=== PATIENT | female | born 1955 | race Caucasian/White ===

== ENCOUNTER 2018-11-22 08:55 | Inpatient (IN) | payer MEDICAID, MEDICARE ==
[~2018-11-22] VITALS: Ht 170.2 cm; Wt 104.5 kg
[~2018-11-22 08:55] MED LIST: CLON2TAB PO; DILT180C66 PO; FLUO20CA39 PO; IPRA3AMP9 IH; NITR0.4T48 SL; ONDA4TAB9 SL; RIVA20TA PO; SOTA80TA PO
[2018-11-22] MEDS ORDERED: normal saline 1000ML IV soln IV ONE (09:10)
[2018-11-22] MEDS ORDERED: pantoprazole IV 80 MG in normal saline 100ml IV soln 100 ML IV ONE (09:10)
[2018-11-22] MEDS ORDERED: pantoprazole IV 40 MG in normal saline 100ml IV soln 100 ML IV ONE (09:17)
[2018-11-22 09:34] LABS: BASOPHILS # (AUTO) 0.1 X10'3 (0-0.2); EOSINOPHILS # (AUTO) 0.1 X10'3 (0-0.9); EOSINOPHILS % (AUTO) 0.8 % (0-6); HEMOGLOBIN 7.7 g/dl (12.0-16.0); MEAN CORPUSCULAR VOLUME 53.9 FL (78-98); MONOCYTES # (AUTO) 0.5 X10'3 (0-0.9)
[2018-11-22 09:36] LABS: BASOPHILS % (AUTO) 0.7 % (0-1); HEMATOCRIT 26.5 % (35.0-45.0); LYMPHOCYTES # (AUTO) 2.6 X10'3 (1.1-4.8); LYMPHOCYTES % (AUTO) 27.1 % (21-51); MEAN CORPUSCULAR HEMOGLOBIN 15.8 PG (27.0-31.0); MEAN CORPUSCULAR HGB CONC 29.3 g/dL (33.0-36.5); MEAN PLATELET VOLUME 8.4 FL (7.4-10.4); NEUTROPHILS # (AUTO) 6.4 X10'3 (1.8-7.7); NEUTROPHILS % (AUTO) 66.4 % (42-75); PLATELET COUNT 779 X10'3 (140-440); RED BLOOD COUNT 4.91 X10'6 (4.20-5.60); RED CELL DISTRIBUTION WIDTH 22.3 % (11.5-14.5); WHITE BLOOD COUNT 9.6 X10'3 (4.5-11.0)
[2018-11-22] MEDS ORDERED: morphine 4 MG/ML inj SYRINge IV PRN (09:45)
[2018-11-22] MEDS ORDERED: ipratropium/albuterol 3ml nebule NEB ONE (09:45)
[2018-11-22] MEDS ORDERED: ondansetron/PF 4mg/2ml inj IV ONE (09:45)
[2018-11-22 09:48] LABS: ALANINE AMINOTRANSFERASE 21 U/L (12-78); ALKALINE PHOSPHATASE 90 IU/L (46-116); ANION GAP 15 (8-16); ASPARTATE AMINO TRANSFERASE 10 U/L (10-37); BILIRUBIN,TOTAL 0.5 MG/DL (0.1-1.0); BLOOD UREA NITROGEN 18 MG/DL (7-18); BUN/CREATININE RATIO 10.2 (6.6-38.0); CALCIUM 9.2 MG/DL (8.5-10.1); CHLORIDE 103 MMOL/L (99-107); CREATININE 1.76 MG/DL (0.40-0.90); GLUCOSE 118 MG/DL (70-104); POTASSIUM 4.5 MMOL/L (3.5-5.1); SODIUM 139 MMOL/L (135-145); TOTAL CARBON DIOXIDE 21.3 MMOL/L (24-32); TOTAL PROTEIN 8.2 G/DL (6.4-8.2); eGFR 29 ML/MIN
[2018-11-22] MEDS ORDERED: magnesium hydroxide 30ml (MOM) UD suspension PO PRN (10:10)
[2018-11-22] MEDS ORDERED: acetaminophen 325mg tablet PO PRN (10:10)
[2018-11-22] MEDS ORDERED: mag hydrox/Alum hydrox/simeth 30ml oral suspension PO PRN (10:10)
[2018-11-22] MEDS ORDERED: ondansetron/PF 4mg/2ml inj IV PRN (10:10)
[2018-11-22] MEDS ORDERED: HYDROcodone/acetaminophen 5mg/325mg tablet PO PRN (10:10)
[2018-11-22] MEDS ORDERED: morphine 2 MG/ML inj. syringe IV PRN ×2 (10:10)
[2018-11-22] MEDS ORDERED: DILT-36 PO (10:17)
[2018-11-22 10:18] LABS: PLATELET ESTIMATE INCREASED
[2018-11-22 10:19] LABS: ANISOCYTOSIS 3+; HYPOCHROMASIA 2+; MICROCYTOSIS 3+; POLYCHROMASIA 1+
[2018-11-22 10:20] LABS: ELLIPTOCYTES 1+; TEAR DROP CELLS FEW
[2018-11-22] MEDS ORDERED: DILT90CA PO (10:26)
[2018-11-22] MEDS ORDERED: ATOR40TA71 PO (10:45)
[2018-11-22] MEDS ORDERED: nitroGLYCERIN 0.4mg SUBLingual tab SL PRN (10:55)
--- NOTE | 2018-11-22 10:55 | NUR ---
PT IS IN BED SUPINE, JUST RCVD BREATHING TREATMENT, TOLERATED WELL
--- NOTE | 2018-11-22 11:45 | NUR ---
CALLED DR. ROMERO'S OFFICE TO REQUEST PREVIOUS LABS, THEIR LAST LABS WERE FROM 2017.
[2018-11-22 12:10] LABS: % IRON SATURATION 3 % (11-46); IRON 16 UG/DL (49-151); TOTAL IRON BINDING CAPACITY 516 UG/DL (259-388)
[2018-11-22 12:45] LABS: FERRITIN 4 NG/ML (8-252)
[2018-11-22 14:56] LABS: OCCULT BLOOD STOOL NEGATIVE (Neg)
[2018-11-22] MEDS: pantoprazole 40mg Tablet.DR PO SCH ×2 (15:24→20:35)
[2018-11-22] MEDS: clonazePAM 1mg tablet PO PRN ×2 (15:34→23:35)
--- NOTE | 2018-11-22 15:38 | NUR ---
PT ASKED FOR NORCO AND MORPHINE TO BE TAKEN OFF HER EMAR. SHE HAS STRUGGLED IN THE PAST AND HAS BEEN CLEAN FOR YEARS.
[2018-11-22] MEDS ORDERED: LIDOcaine Viscous 15ml cup ONE (16:33)
[2018-11-22] MEDS ORDERED: MIDAZolam 5mg/5ml vial ONE (16:33)
[2018-11-22] MEDS ORDERED: OMEP-50 PO (17:12)
--- NOTE | 2018-11-22 18:10 | NUR ---
Patient in room [facility]. I have received report from Marisel EAST and had the opportunity to ask questions and assume patient care.
--- NOTE | 2018-11-22 18:11 | NUR ---
GAVE REPORT TO LILIBETH EAST
--- NOTE | 2018-11-22 18:15 | NUR ---
Patient in room [facility]. I have received report from Marisel EAST and had the opportunity to ask questions and assume patient care.
[2018-11-22 20:00] VITALS: BP 108/69
[2018-11-22] MEDS: acetaminophen 325mg tablet PO PRN (23:36)
[2018-11-23] VITALS (18 sets, daily range): BP systolic 99–149; BP diastolic 64–94
[2018-11-23 05:31] LABS: ALBUMIN 3.5 G/DL (3.4-5.0); ANION GAP 14 (8-16); BLOOD UREA NITROGEN 19 MG/DL (7-18); BUN/CREATININE RATIO 13.8 (6.6-38.0); CALCIUM 8.7 MG/DL (8.5-10.1); CHLORIDE 105 MMOL/L (99-107); CREATININE 1.38 MG/DL (0.40-0.90); GLUCOSE 97 MG/DL (70-104); SODIUM 141 MMOL/L (135-145); TOTAL CARBON DIOXIDE 22.2 MMOL/L (24-32); eGFR 39 ML/MIN
[2018-11-23 06:43] LABS: BASOPHILS # (AUTO) 0.1 X10'3 (0-0.2); BASOPHILS % (AUTO) 0.8 % (0-1); EOSINOPHILS # (AUTO) 0.1 X10'3 (0-0.9); LYMPHOCYTES # (AUTO) 2.8 X10'3 (1.1-4.8); MEAN PLATELET VOLUME 8.4 FL (7.4-10.4); WHITE BLOOD COUNT 7.4 X10'3 (4.5-11.0)
[2018-11-23 06:47] LABS: EOSINOPHILS % (AUTO) 1.6 % (0-6); HEMATOCRIT 23.8 % (35.0-45.0); LYMPHOCYTES % (AUTO) 38.4 % (21-51); MEAN CORPUSCULAR HEMOGLOBIN 15.9 PG (27.0-31.0); MEAN CORPUSCULAR VOLUME 54.6 FL (78-98); MONOCYTES # (AUTO) 0.5 X10'3 (0-0.9); MONOCYTES % (AUTO) 6.7 % (2-12); NEUTROPHILS # (AUTO) 3.9 X10'3 (1.8-7.7); NEUTROPHILS % (AUTO) 52.5 % (42-75); PLATELET COUNT 613 X10'3 (140-440); RED BLOOD COUNT 4.35 X10'6 (4.20-5.60); RED CELL DISTRIBUTION WIDTH 21.7 % (11.5-14.5)
--- NOTE | 2018-11-23 06:51 | NUR ---
Problems reprioritized. Patient report given, questions answered & plan of care reviewed with Jeanine EAST.
[2018-11-23 06:55] LABS: HEMOGLOBIN 6.9 g/dl (12.0-16.0)
[2018-11-23] MEDS ORDERED: MIDAZolam 5mg/5ml vial ONE (07:22)
[2018-11-23] MEDS: DILTIAZEM 90 MG PO SCH (08:00)
[2018-11-23] MEDS ORDERED: LIDOcaine Viscous 15ml cup ONE (08:11)
[2018-11-23 09:03] LABS: ANISOCYTOSIS 3+; HYPOCHROMASIA 1+; MICROCYTOSIS 3+; PLATELET ESTIMATE INCREASED
[2018-11-23 09:04] LABS: LARGE PLATELETS FEW; POIKILOCYTOSIS FEW; POLYCHROMASIA FEW; TARGET CELLS FEW
[2018-11-23] MEDS: FLUoxetine 20mg capsule PO SCH (09:44)
[2018-11-23] MEDS: pantoprazole 40mg Tablet.DR PO SCH ×2 (09:44→19:22)
[2018-11-23] MEDS: atorvastatin 20mg tablet PO SCH (09:44)
[2018-11-23] MEDS: clonazePAM 1mg tablet PO PRN ×2 (09:50→19:22)
--- NOTE | 2018-11-23 15:32 | NUR ---
MD Rolle aware that pt. was tachycardic earlier. HR has improved since blood transfusion started. ok with DC'ing tele monitor. Also ok to advance diet.
--- NOTE | 2018-11-23 18:05 | NUR ---
Patient in room [facility]. I have received report from Jeanine EAST and had the opportunity to ask questions and assume patient care.
[2018-11-23 18:22] LABS: HEMATOCRIT 27.1 % (35.0-45.0); HEMOGLOBIN 8.1 g/dl (12.0-16.0); MEAN CORPUSCULAR HEMOGLOBIN 17.4 PG (27.0-31.0); MEAN CORPUSCULAR HGB CONC 29.9 g/dL (33.0-36.5); MEAN CORPUSCULAR VOLUME 58.1 FL (78-98); MEAN PLATELET VOLUME 8.5 FL (7.4-10.4); PLATELET COUNT 555 X10'3 (140-440); RED BLOOD COUNT 4.66 X10'6 (4.20-5.60); RED CELL DISTRIBUTION WIDTH 25.1 % (11.5-14.5); WHITE BLOOD COUNT 7.8 X10'3 (4.5-11.0)
--- NOTE | 2018-11-23 19:03 | NUR ---
GAVE REPORT TO LILIBETH EAST.
[2018-11-24] VITALS: BP 112/77
[2018-11-24] MEDS: acetaminophen 325mg tablet PO PRN (04:38)
[2018-11-24 06:12] LABS: BASOPHILS # (AUTO) 0.1 X10'3 (0-0.2); BASOPHILS % (AUTO) 1.4 % (0-1); EOSINOPHILS # (AUTO) 0.1 X10'3 (0-0.9); EOSINOPHILS % (AUTO) 2.4 % (0-6); HEMATOCRIT 27.1 % (35.0-45.0); HEMOGLOBIN 8.2 g/dl (12.0-16.0); LYMPHOCYTES # (AUTO) 2.1 X10'3 (1.1-4.8); LYMPHOCYTES % (AUTO) 35.1 % (21-51); MEAN CORPUSCULAR HEMOGLOBIN 17.6 PG (27.0-31.0); MEAN CORPUSCULAR HGB CONC 30.2 g/dL (33.0-36.5); MEAN CORPUSCULAR VOLUME 58.3 FL (78-98); MEAN PLATELET VOLUME 8.4 FL (7.4-10.4); MONOCYTES # (AUTO) 0.4 X10'3 (0-0.9); MONOCYTES % (AUTO) 6.7 % (2-12); NEUTROPHILS # (AUTO) 3.3 X10'3 (1.8-7.7); NEUTROPHILS % (AUTO) 54.4 % (42-75); PLATELET COUNT 598 X10'3 (140-440); RED BLOOD COUNT 4.64 X10'6 (4.20-5.60); RED CELL DISTRIBUTION WIDTH 24.9 % (11.5-14.5)
--- NOTE | 2018-11-24 06:17 | NUR ---
Problems reprioritized. Patient report given, questions answered & plan of care reviewed with Saskia EAST.
[2018-11-24 06:24] LABS: ALBUMIN 3.5 G/DL (3.4-5.0); ANION GAP 13 (8-16); BLOOD UREA NITROGEN 12 MG/DL (7-18); BUN/CREATININE RATIO 9.7 (6.6-38.0); CALCIUM 8.5 MG/DL (8.5-10.1); CHLORIDE 106 MMOL/L (99-107); CREATININE 1.24 MG/DL (0.40-0.90); GLUCOSE 92 MG/DL (70-104); SODIUM 141 MMOL/L (135-145); TOTAL CARBON DIOXIDE 21.9 MMOL/L (24-32); eGFR 44 ML/MIN
[2018-11-24] MEDS ORDERED: PANT40TA4 PO (07:08)
[2018-11-24 07:10] VITALS: BP 146/88
[2018-11-24] MEDS: DILTIAZEM 90 MG PO SCH (08:00)
[2018-11-24] MEDS: pantoprazole 40mg Tablet.DR PO SCH (08:30)
[2018-11-24] MEDS: clonazePAM 1mg tablet PO PRN (08:30)
[2018-11-24] MEDS: FLUoxetine 20mg capsule PO SCH (08:30)
[2018-11-24] MEDS: atorvastatin 20mg tablet PO SCH (08:30)
--- NOTE | 2018-11-24 08:45 | NUR ---
Pt discharged. Meds to be called into [facility] when [facility] open at 10am. IV taken out, no tele, all belongings taken from room. Pt states she feels well and ready to go home. She is appropriate for discharge and will follow up with pcp and dr savage for f/u egd. she is aware to not take xerelto for 5 days.
[2018-11-24 09:08] LABS: ANISOCYTOSIS 3+; HYPOCHROMASIA 1+; MICROCYTOSIS 3+; PLATELET ESTIMATE INCREASED; POIKILOCYTOSIS FEW; POLYCHROMASIA 1+; TARGET CELLS FEW
== END 2018-11-24 09:10 | disposition home or self-care (01) | DRG 377 ==
LOC: ER 08:57 → SUR 3N 12:13
PROVIDERS: ADMIT Internal Medicine; ATTEND Hospitalist
PROC: 0DJ08ZZ Inspection of Upper Intestinal Tract, Via Natural or Artificial Opening Endoscopic (ICD-10-PCS; principal; 2018-11-23)
PROC: 30233N1 Transfusion of Nonautologous Red Blood Cells into Peripheral Vein, Percutaneous Approach (ICD-10-PCS; 2018-11-23)
DX: K25.4 Chronic or unspecified gastric ulcer with hemorrhage (principal); N17.0 Acute kidney failure with tubular necrosis; D62 Acute posthemorrhagic anemia; E78.5 Hyperlipidemia, unspecified; I10 Essential (primary) hypertension; I25.10 Atherosclerotic heart disease of native coronary artery without angina pectoris; I48.0 Paroxysmal atrial fibrillation; K44.9 Diaphragmatic hernia without obstruction or gangrene; K29.71 Gastritis, unspecified, with bleeding; K22.2 Esophageal obstruction; D50.9 Iron deficiency anemia, unspecified; K21.9 Gastro-esophageal reflux disease without esophagitis; F32.9 Major depressive disorder, single episode, unspecified; F41.9 Anxiety disorder, unspecified; Z79.01 Long term (current) use of anticoagulants; Z83.3 Family history of diabetes mellitus; Z86.73 Personal history of transient ischemic attack (TIA), and cerebral infarction without residual deficits; Z90.49 Acquired absence of other specified parts of digestive tract; Z90.710 Acquired absence of both cervix and uterus; Z79.899 Other long term (current) drug therapy; Z88.8 Allergy status to other drugs, medicaments and biological substances; Z82.3 Family history of stroke; Z84.89 Family history of other specified conditions
CPT/HCPCS: 36415; 43235; 71046; 80048; 80053; 82272; 82728; 82948; 83540; 83550; 83880; 84484; 85025; 85027; 85610; 86885; 86900; 86901; 86920; 87081; 93005; 94640; 94760; 96365; 99152; 99285; A4620; C9113; G0378; J2250; J7040; P9016

== ENCOUNTER 2019-01-10 09:21 | Emergency (ER) | payer MEDICARE ==
[~2019-01-10] VITALS: Ht 170.2 cm; Wt 90.0 kg
[~2019-01-10 09:21] MED LIST changes: +ATOR40TA71 PO; -DILT180C66 PO; +DILT90CA PO; +PANT40TA4 PO; -SOTA80TA PO
[2019-01-10 10:23] LABS: BASOPHILS # (AUTO) 0.1 X10'3 (0-0.2); BASOPHILS % (AUTO) 0.7 % (0-1); EOSINOPHILS % (AUTO) 0.4 % (0-6); HEMATOCRIT 31.2 % (35.0-45.0); HEMOGLOBIN 9.3 g/dl (12.0-16.0); LYMPHOCYTES # (AUTO) 2.4 X10'3 (1.1-4.8); LYMPHOCYTES % (AUTO) 24.4 % (21-51); MEAN CORPUSCULAR HEMOGLOBIN 17.4 PG (27.0-31.0); MEAN CORPUSCULAR HGB CONC 29.9 g/dL (33.0-36.5); MEAN PLATELET VOLUME 8.4 FL (7.4-10.4); MONOCYTES # (AUTO) 0.6 X10'3 (0-0.9); MONOCYTES % (AUTO) 5.9 % (2-12); NEUTROPHILS # (AUTO) 6.6 X10'3 (1.8-7.7); NEUTROPHILS % (AUTO) 68.6 % (42-75); PLATELET COUNT 585 X10'3 (140-440); RED BLOOD COUNT 5.38 X10'6 (4.20-5.60); WHITE BLOOD COUNT 9.7 X10'3 (4.5-11.0)
[2019-01-10 10:46] LABS: PARTIAL THROMBOPLASTIN TIME 24 SECONDS (22-32)
[2019-01-10 10:51] LABS: PLATELET ESTIMATE INCREASED
[2019-01-10 10:52] LABS: ANISOCYTOSIS 3+; HYPOCHROMASIA 3+; MICROCYTOSIS 3+; POIKILOCYTOSIS 1+; POLYCHROMASIA 1+
[2019-01-10 10:54] LABS: ALANINE AMINOTRANSFERASE 20 U/L (12-78); ALBUMIN 4.1 G/DL (3.4-5.0); ALBUMIN/GLOBULIN RATIO 0.9 (1.1-1.5); ALKALINE PHOSPHATASE 103 IU/L (46-116); ANION GAP 14 (8-16); ASPARTATE AMINO TRANSFERASE 12 U/L (10-37); BILIRUBIN,TOTAL 0.5 MG/DL (0.1-1.0); BLOOD UREA NITROGEN 15 MG/DL (7-18); BUN/CREATININE RATIO 9.9 (6.6-38.0); CALCIUM 9.4 MG/DL (8.5-10.1); CHLORIDE 103 MMOL/L (99-107); CREATININE 1.51 MG/DL (0.40-0.90); GLUCOSE 127 MG/DL (70-104); POTASSIUM 4.3 MMOL/L (3.5-5.1); SODIUM 139 MMOL/L (135-145); TOTAL CARBON DIOXIDE 21.8 MMOL/L (24-32); TOTAL PROTEIN 8.5 G/DL (6.4-8.2); eGFR 35 ML/MIN
[2019-01-10] MEDS ORDERED: normal saline 1000ML IV soln IVB ONE (12:05)
[2019-01-10] MEDS ORDERED: ondansetron/PF 4mg/2ml inj IV ONE (12:05)
--- NOTE | 2019-01-10 13:00 | NUR ---
pt taken off of O2 and sitting up and waiting for RT to come and do an abg on the pt to evaluate her O2 status off oxygen. MD Patiño aware and ordered the ABG.
[2019-01-10 13:41] LABS: ABG BASE EXCESS -4.5 mmol/L (-2.0-3.0); ABG HCO3 20.1 mmol/L (22.0-26.0); ABG OXYGEN SATURATION 89.4 % (95-98); ABG PCO2 (T) 34.8 mmHg (35.0-45.0); ABG PH (T) 7.379 (7.350-7.450); ABG PO2 (T) 61.8 mmHg (83-108); ALLEN'S TEST Positive; FMetHb 0.1 % (0.3-1.12); FO2Hb 88.4 % (94-100); TOTAL HEMOGLOBIN 8.8 G/dl (12.0-16.0)
[2019-01-10 13:58] VITALS: BP 121/83
[2019-01-10] MEDS ORDERED: ONDA4TAB6 PO (14:00)
[2019-01-10] MEDS ORDERED: SUCR1TAB34 PO (14:00)
== END 2019-01-10 14:12 | disposition home or self-care (01) ==
LOC: ER 09:22
DX: R11.2 Nausea with vomiting, unspecified (principal); R19.7 Diarrhea, unspecified; I48.91 Unspecified atrial fibrillation; I25.10 Atherosclerotic heart disease of native coronary artery without angina pectoris; I10 Essential (primary) hypertension; Z86.73 Personal history of transient ischemic attack (TIA), and cerebral infarction without residual deficits; Z90.49 Acquired absence of other specified parts of digestive tract; Z90.710 Acquired absence of both cervix and uterus; Z88.8 Allergy status to other drugs, medicaments and biological substances; Z79.899 Other long term (current) drug therapy
CPT/HCPCS: 36415; 36600; 71045; 80053; 82803; 84484; 85018; 85025; 85610; 85730; 93005; 96374; 99284; J2405; J7030